=== PATIENT | male | born 1980 | race Caucasian/White ===

== ENCOUNTER → 2022-03-24 14:19 | Outpatient (CLI) | payer OTHER, SELFPAY ==
--- NOTE | ~2022-03-24 | US_ITS ---
US axilla LT 03/24/2022 14:33 Indication: Palpable left axillary mass Procedure: High-resolution Limited ultrasound of the axilla Comparison: No prior studies for comparison. Findings: There are normal-appearing left axillary lymph nodes with normal fatty hilum, largest measu ring 1.7 cm. Impression: 1: Normal left axillary lymph nodes measuring up to 1.7 cm. BI-RADS CATEGORY 2 - BENIGN FINDINGS Reviewed, dictated and finalized at location A. Impression: 1: Normal left axillary lymph nodes measuring up to 1.7 cm. BI-RADS CATEGORY 2 - BENIGN FINDINGS
== END ==
PROVIDERS: PCP Family Medicine; Visit Provider Nurse Practitioner Family
DX: R59.0 Localized enlarged lymph nodes (principal)
CPT/HCPCS: 76882

== ENCOUNTER 2022-04-28 01:05 | Day surgery (SDC) | payer OTHER, SELFPAY ==
[2022-04-13 09:16] VITALS: BMI 31.1
--- NOTE | 2022-04-27 13:45 | SUR.PREOP ---
pt called and notified to not take magnesium citrate d/t a recall. pt verbalized understanding.
[2022-04-28 08:53] VITALS: BP 119/75; PULSE 63; RESP 18; TEMP 36.4; O2SAT 96; BMI 31.1
[2022-04-28] MEDS: LACTATED RINGERS 1,000 ML 150 ML IV CONT (09:05)
--- NOTE | 2022-04-28 09:10 | P.PNAN_ITS ---
Anes - Initial Pre Proc Eval Procedure: Operation Date: 04/28/22 10:00 Proposed Procedures p Screening Colonoscopy - Fransisco Mckenna MD Date/Time: 04/28/22 09:10 Surgeon: Fransisco Mckenna MD Pre Op Diagnosis: family hx colon ca, neoplasm screening Patient Data Age: 41 Gender: M Height: 1.83 m Weight: 104.2 kg Last Vital Signs Temp 97.6 F 04/28/22 08:53 Pulse 63 04/28/22 08:53 Resp 18 04/28/22 08:53 BP 119/75 04/28/22 08:53 Pulse Ox 96 04/28/22 08:53 O2 Del Method Room Air 04/28/22 08:53 Allergies Allergy/AdvReac Type Severity Reaction Status Date / Time No Known Allergies Allergy Unknown Verified 04/28/22 08:51 Home Medications Medication Instructions Recorded Confirmed Type escitalopram oxalate 10 mg tablet 10 mg PO DAILY #30 tabs 01/10/22 04/28/22 Rx (Lexapro) Patient hx anesthesia problems: none Family hx anesthesia problems: none Results Review: All pre-operative results and documents have been reviewed as part of the pre- operative evaluation. [facility] Past Medical History Medical History BMI 30.0-30.9,adult BMI 31.0-31.9,adult Family History Family History Grandparent Diabetes mellitus Father AVM (arteriovenous malformation) Cancer Carcinoma of colon Mother Diabetes mellitus Social History Social History Smoking status: Never smoker Second hand tobacco smoke exposure: Yes Alcohol intake: current Drinks per week: 10 Substance use: never Substance use type: does not use Living arrangements: with family Additional occupation/education comments: billing analyst Gender identity (if verbalized by the patient): Male Spiritual care concerns: No Anes - Eval Final PreProcedure Day of Procedure 04/28/22 09:10 Patient weight: overweight Heart: regular rate and rhythm Lungs: clear to auscultation Airway: Mallampati scale class II Neurological: alert and oriented Last oral intake: >/= 8 hours ASA classification: II Emergent: no Anesthetic plan: proceed Anesthesia type and monitoring: general GIVS and standard monitoring Results Review: All pre-operative results and documents have been reviewed as part of the pre- operative evaluation. Informed Consent: The patient's anesthetic plan and its attendant risks and benefits were discussed with the patient/family/POA. Questions were solicited and answers provided to the satisfaction of the patient/family/POA.
--- NOTE | 2022-04-28 09:24 | P.HP_ITS ---
H&P: HPI History of Present Illness Date/Time: 04/28/22 09:24 Chief Complaint: Family history of colon cancer. Narrative: This is a 41-year-old white male patient presents for colonoscopy. Patient's family history is significant his father and grandmother both have had colon cancer. Patient states that his own weight appetite and bowel movements are normal. Patient denies abdominal pain. He has had no bleeding. He presents today for screening exam. Review of Systems Review of Systems: Review of systems noncontributory. 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 Gender identity (if verbalized by the patient): Male Spiritual care concerns: No Meds Home Medications and Allergies Home Medications Medication Instructions Recorded Confirmed Type escitalopram oxalate 10 mg tablet 10 mg PO DAILY #30 tabs 01/10/22 04/28/22 Rx (Lexapro) Allergies Allergy/AdvReac Type Severity Reaction Status Date / Time No Known Allergies Allergy Unknown Verified 04/28/22 08:51 Vital Signs Vital Signs - 24 hr 04/28/22 08:53 Temperature 97.6 F Pulse Rate 63 Respiratory Rate 18 Blood Pressure 119/75 Pulse Oximetry 96 Oxygen Delivery Room Air Exam Narrative: Physical exam reveals patient to be alert. Vital signs stable. HEENT exam is unremarkable. Patient is anicteric. Lungs are clear to au scultation and percussion. Heart is without murmur or extra sounds. Abdominal exam bowel sounds present soft nontender with no hepatosplenomegaly. Digital external rectal exam is normal. Assessment and Plan Assessment and plan (1) Family hx of colon cancer: Code(s): Z80.0 - Family history of malignant neoplasm of digestive organs Status: Acute Assessment and Plan: Patient gives a family history of colon cancer in both father and grandmother. Plan for surveillance colonoscopy now and consider this at 5 year intervals in the future.
[2022-04-28 10:34] VITALS: BP 98/68; PULSE 56; RESP 14; O2SAT 99
[2022-04-28 10:44] VITALS: BP 116/86; PULSE 61; RESP 19; O2SAT 98
== END 2022-04-28 11:01 | disposition home or self-care (01) ==
PROVIDERS: PCP Family Medicine; Visit Provider Internal Medicine Gastroenterology
PROC: 0DJD8ZZ Inspection of Lower Intestinal Tract, Via Natural or Artificial Opening Endoscopic (ICD-10-PCS; CPT 45378; principal; 2022-04-28 10:00)
DX: Z12.11 Encounter for screening for malignant neoplasm of colon (principal); Z80.0 Family history of malignant neoplasm of digestive organs; K64.8 Other hemorrhoids; D12.5 Benign neoplasm of sigmoid colon
CPT/HCPCS: 45385; 88305; J2704; J7120

== ENCOUNTER 2022-07-21 12:55 | Emergency (ER) | payer OTHER, SELFPAY ==
[2022-07-21 13:07] VITALS: BP 115/90; PULSE 76; RESP 16; TEMP 36.9; O2SAT 99
--- NOTE | 2022-07-21 13:08 | ED.URI ---
HPI - URI/Sore Throat General Chief Complaint: Upper Respiratory Infection Stated Complaint: fever, coughing, congestion, headache Time Seen by Provider: 07/21/22 13:22 Source: patient and RN notes reviewed Mode of arrival: ambulatory Limitations: no limitations History of Present Illness HPI Narrative: 41-year-old female presents to concern for 12 day history of head congestion, pressure, cough, cold sweats, fever. Reports he has been taking some [id number] medications with only temporary relief. He reports pressure behind his eyes, sinus pain. MD elicited complaint: cough and nasal congestion Related Data Allergies Allergy/AdvReac Type Severity Reaction Status Date / Time No Known Allergies Allergy Unknown Verified 04/28/22 08:51 Review of Systems Review of Systems: CONSTITUTIONAL: Report malaise, chills, sweats, fever. EYES: Denies visual changes, redness, or discharge. ENT: Reports rhinorrhea, congestion, sinus pain. Denies otalgia and sore throat. CARDIOVASCULAR: Denies chest pain, palpitations, or edema. RESPIRATORY: Reports cough. Denies dyspnea. GASTROINTESTINAL: Denies abdominal pain, nausea, vomiting, diarrhea SKIN: Denies rash or itching. MUSCULOSKELETAL: Reports myalgia. NEUROLOGIC: Reports headache. 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 There is no relevant family history pertinent to the presenting complaint Exam Narrative: GENERAL: Well-appearing, well-nourished, and in no acute distress. HEAD: Normocephalic EYES: PERRLA, conjunctivae clear ENT: Nares clear, turbinates edematous and erythematous, sinus tenderness. Mucous membranes moist. Right TM pearly sheldon with dull light reflex, left TM erythematous and bulging; no tragal tenderness. Oropharynx not erythematous without lesions. Tonsils not enlarged and without exudate, no drooling, no hoarseness, no trismus, uvula midline. NECK: Supple. No lymphadenopathy CHEST: Clear to auscultation, breath sounds equal. No wheezing, rhonchi, rales, or stridor. No respiratory distress, speaks in full sentences. HEART: Regular rate and rhythm. No murmur heard. SKIN: Warm, dry, no rash. NEURO: Alert and oriented x3. PSYCH: Normal mood and affect Course Course Emergency Course: Patient is aware of diagnosis, understands and agrees to treatment plan. Anticipatory guidance given. Patient agrees to follow-up as directed and is aware of reasons to seek care at the emergency department. Portions of this record may have been created with voice recognition software Level of Care: Express Care Visit Vital Signs Vital signs: Vital Signs Temperature 98.4 F 07/21/22 13:07 Pulse Rate 76 07/21/22 13:07 Respiratory Rate 16 07/21/22 13:07 Blood Pressure 115/90 07/21/22 13:07 Pulse Oximetry 99 07/21/22 13:07 Temperature 98.4 F 07/21/22 13:07 Pulse Rate 76 07/21/22 13:07 Respiratory Rate 16 07/21/22 13:07 Blood Pressure 115/90 07/21/22 13:07 Pulse Oximetry 99 07/21/22 13:07 Reviewed. TAMIA - URI/Marjorie Haines
== END 2022-07-21 13:32 | disposition home or self-care (01) ==
PROVIDERS: Emergency Provider Nurse Practitioner; PCP Family Medicine
DX: H66.90 Otitis media, unspecified, unspecified ear (principal); J32.9 Chronic sinusitis, unspecified
CPT/HCPCS: 99213; G0463

== ENCOUNTER 2023-06-12 09:43 | Emergency (ER) | payer OTHER, SELFPAY ==
[2023-06-12 09:52] VITALS: BP 115/82; PULSE 70; RESP 16; TEMP 36.5; O2SAT 98
[2023-06-12 09:54] VITALS: BP 115/82; PULSE 70; RESP 16; TEMP 36.5; O2SAT 98
--- NOTE | 2023-06-12 09:54 | ED.DIZZY ---
HPI - Dizziness General Chief Complaint: Dizziness Stated Complaint: DIZZINESS Time Seen by Provider: 06/12/23 09:55 Source: patient Mode of arrival: ambulatory Limitations: no limitations History of Present Illness HPI Narrative: Blair is a 42-year-old male patient presenting to clinic today with complaints of dizziness and sinus headache. He reports he went to the ER on Sunday for dizziness. Reports that he feels as though the ground is moving underneath him and that his equilibrium is off. He reports the ER did a CT of his brain which was negative, blood work which all came back normal, and an EKG which was also normal. States that they did not put him on any medications for dizziness and just wanted him to follow-up for with his doctor. He reports that they also would like to have him have a stress test. He denies any chest pain or shortness of breath currently. He denies any tingling or numbness. Related Data Allergies Allergy/AdvReac Type Severity Reaction Status Date / Time No Known Allergies Allergy Unknown Verified 06/12/23 09:53 Review of Systems Review of Systems: Pertinent positives per HPI. Patient denies any fever, chills, rash, visual changes, cough, runny nose, sore throat, shortness of breath, chest pain, palpitations, nausea, vomiting, diarrhea, constipation, abdominal pain, or any urinary issues. [facility] Past Medical History Medical History BMI 30.0-30.9,adult BMI 31.0-31.9,adult Family History Family History Grandparent Diabetes mellitus Father AVM (arteriovenous malformation) Cancer Carcinoma of colon Mother Diabetes mellitus Social History Social History Smoking status: Never smoker Second hand tobacco smoke exposure: Yes Alcohol intake: current Drinks per week: 10 Substance use: never Substance use type: does not use Lack of Transportation: No Lack of Food: Never True Current Housing: I Have Housing Concerned About Future Housing: No Difficulty Paying Gas/Electric Bills: No Difficulty Paying for Meds: No Currently Unemployed: No Education: Bachelor's Degree Difficulty w/ Childcare or Family Care: No Living arrangements: with family Occupation/Education: occupation 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 There is no relevant family history pertinent to the patient complaint. Exam Narrative: General: Well-developed, well nourished, in no apparent distress Head: Normocephalic, atraumatic Eyes: Pupils equally round and reactive to light bilaterally, EOM intact, sclera and conjunctive clear, no discharge, lids normal Ears: TMs intact, congestion with fluid noted behind the TM, with mild bulging, ear canals clear, no drainage, grossly hearing normal. Nose: Nares patent, clear discharge, mild inflammation, no sinus tenderness. Mouth: Oropharynx without lesions or masses, good dentition, MMM. Tongue midline, even rise and fall of uvula Neck: Supple, trachea midline, no enlargement of anterior or posterior cervical nodes, no thyroid masses or goiter palpable. Cardio: Regular rate and rhythm, s1 and s2 normal, no murmur appreciated. Resp: Clear to auscultation bilaterally anteriorly and posteriorly, no rhonchi, rales, wheezing or rubs Musculoskeletal: No deformity, non-tender to palpation, grossly normal range of motion, muscle strength strong and equal, peripheral pulse strong, no edema, no cyanosis, normal gait and station Neuro: Alert and oriented x4 with normal speech, no focal deficits, cranial nerves I through XII intact, m
== END 2023-06-12 10:06 | disposition home or self-care (01) ==
PROVIDERS: Emergency Provider Nurse Practitioner Family; PCP Family Medicine
DX: H69.93 Unspecified Eustachian tube disorder, bilateral (principal); H66.93 Otitis media, unspecified, bilateral; R42 Dizziness and giddiness
CPT/HCPCS: 99213; G0463

== ENCOUNTER 2023-07-16 09:23 | Outpatient (CLI) | payer OTHER, SELFPAY ==
--- NOTE | 2023-07-16 09:28 | EST_ITS ---
Patient Info Name: Blair Stahl Age: 42 years : 1980 Gender: Male Ht: 72 in Wt: 250 lbs BSA: 2.44 m2 HR: 74 bpm BP: 127 / 83 mmHg Heart Rhythm: Sinus Rhythm Exam Date: 07/16/2023 9:45 AM Exam Location: [facility] Stress Patient Status: Outpatient Admit Date: 07/16/2023 Staff Ordering Physician: Ayah Baumann PAC Attending Provider: Ayah Baumann PAC Exercise Technologist: Monika Bustillo, CHAKA Exercise Physician: Robby Boggs DO Exam Type: CA stress test treadmill Study Info Indications R42 - Dizziness and giddiness A treadmill exercise stress test was performed. Summary 1. 1. Negative Mk exercise stress test for ischemic ST changes by ECG criteria. 2. 2. Good functional capacity, achieving 10 METs of workload. 3. 3. Appropriate HR response to exercise. 4. 4. Appropriate HR recovery at 1 minute post exercise. 5. 5. No imaging with stress testing. 6. 6. Patient informed of the above results. Protocol: Mk Stress ECG Details Stage: REST Duration (min): 9 min : 23 sec Speed (mph): 0.0 Grade (%): 0 HR (bpm): 71 SBP (mmHg): 127 DBP (mmHg): 83 METS: --- Stage: REST Duration (min): 9 min : 50 sec Speed (mph): 0.0 Grade (%): 0 HR (bpm): 70 SBP (mmHg): 127 DBP (mmHg): 83 METS: --- Stage: STAGE 1 Duration (min): 1 min : 0 sec Speed (mph): 1.7 Grade (%): 10 HR (bpm): 95 SBP (mmHg): 127 DBP (mmHg): 83 METS: --- Stage: STAGE 1 Duration (min): 2 min : 0 sec Speed (mph): 1.7 Grade (%): 10 HR (bpm): 100 SBP (mmHg): 127 DBP (mmHg): 83 METS: --- Stage: STAGE 1 Duration (min): 3 min : 0 sec Speed (mph): 1.7 Grade (%): 10 HR (bpm): 103 SBP (mmHg): 119 DBP (mmHg): 75 METS: --- Stage: STAGE 2 Duration (min): 1 min : 0 sec Speed (mph): 2.5 Grade (%): 12 HR (bpm): 120 SBP (mmHg): 119 DBP (mmHg): 75 METS: --- Stage: STAGE 2 Duration (min): 2 min : 0 sec Speed (mph): 2.5 Grade (%): 12 HR (bpm): 127 SBP (mmHg): 156 DBP (mmHg): 77 METS: --- Stage: STAGE 2 Duration (min): 3 min : 0 sec Speed (mph): 2.5 Grade (%): 12 HR (bpm): 134 SBP (mmHg): 156 DBP (mmHg): 77 METS: --- Stage: STAGE 3 Duration (min): 1 min : 0 sec Speed (mph): 3.4 Grade (%): 14 HR (bpm): 149 SBP (mmHg): 169 DBP (mmHg): 88 METS: --- Stage: STAGE 3 Duration (min): 2 min : 0 sec Speed (mph): 3.4 Grade (%): 14 HR (bpm): 161 SBP (mmHg): 169 DBP (mmHg): 88 METS: --- Stage: STAGE 3 Duration (min): 2 min : 30 sec Speed (mph): 3.4 Grade (%): 14 HR (bpm): 166 SBP (mmHg): 169 DBP (mmHg): 88 METS: --- Stage: RECOVERY Duration (min): 0 min : 29 sec Speed (mph): 0.0 Grade (%): 0 HR (bpm): 160 SBP (mmHg): 179 DBP (mmHg): 84 METS: --- Stage: RECOVERY Duration (min): 1 min : 30 sec Speed (mph): 0.0 Grade (%): 0 HR (bpm): 126 SBP (mmHg): 179 DBP (mmHg):
== END 2023-07-16 09:24 | disposition home or self-care (01) ==
LOC: ANHCARD 09:24
PROVIDERS: PCP Family Medicine; Visit Provider Physician Assistant Medical
DX: R42 Dizziness and giddiness (principal); Z82.49 Family history of ischemic heart disease and other diseases of the circulatory system
CPT/HCPCS: 93017

== ENCOUNTER 2023-07-30 07:46 | Outpatient (RCR) | payer OTHER, SELFPAY ==
--- NOTE | 2023-07-30 08:56 | OPREHPOC ---
Outpatient Therapy Plan of Care This is a Multidisciplinary Plan of Care that may contain components documented by all disciplines (PT, OT, and ST.) PT Problem 1 PT Problem #1 Knowledge Deficit PT Goal 1 Goal 1* indep with HEP PT Problem 2 PT Problem #2 Impaired Vestibular Syste PT Goal 1 Goal pt perform without c/o vestibular symptoms, loss of balance or unsteady gait: 1* 360' turn to R x1 2* 360' turn to L x1 3* eyes closed tandem stand lead L, 30 seconds 4* eyes closed tandem stand lead R, 30 seconds 5* walk 50' with head motions R/L 3x eadh 6* walk 50' with head motions up/down 3x each 7* Dizziness Handicap Index score of 10/100 8* further assessment of vestibular system as indicated
--- NOTE | 2023-07-30 08:56 | PTOPEVAL1 ---
Assessment and note entered by Roshni Billy, PT Evaluation Information Assessment Status Evaluation Diagnosis dizziness Onset 06-10-23 Subjective Information onset of dizziness, lasting about 1 hour; to ER May, due to face and arm numbness--testing negative; was told had some ear congestion; to ENT tomorrow--Dr Johnson; have tried the Eply at home, no results; History: wearing glasses for reading only- vision OK; seasonal allergies; some issues with neck tightness; no headaches, sinus infection; then got worse, about Jun 10 --- had 4 days of severe dizziness, could not walk, had to use a cane, vomited; in past few weeks: dizziness less, but constant s/s: off balance, eyes trying to catch up with moving head, uncertain when walking, head is off s/s increase: when move head R/L, walking look up/ down, close eyes in shower; Dizziness Handicap Index: 28/100; Vestibular testing: Jovanny Shepard [place] and Horizontal canal testing to R and L were negative; Occulomotor testing: eye tracking, head and eye movements R/L and up/down negative; gaze stabilization with head motions R/L and up/ down with unsteady, feel funny and wobbly balance: 10 reps Balance: eyes closed 10 sec- unsteady; 360' turn to L > R unsteady; small base of support and eyes closed 10 sec- unsteady; tandem stand unsteady with L > R as lead foot; Reported Pain Level Pain Score 0: Self Report Additional Pain Score Comments little stiff neck, slept wrong, generally no pain in neck; Assessment PT Clinical Summary Dakota has the diagnosis of vestibular rehab. He had severe dizziness with nausea and difficulty walking, lasted about 4 days in May, now has decreased but still not feel right. He is able to perform all of his home and work tasks. With testing: he has decreased gaze stabilization and occulomotor, balance issues. Testing for BPPV was negative.
--- NOTE | 2023-09-03 10:17 | PTOPDC ---
Assessment and note entered by Roshni Billy, PT Discharge Information Assessment PT Clinical Summary PHYSICAL THERAPY DISCHARGE Dakota had the PT evaluation on 07-30-23. He had an appointment with ENT, then called and canceled his PT services. The goals were not assessed. Discharge PT per pt request. Plan of Care PT Services Indicated No
== END 2023-09-03 11:37 | disposition home or self-care (01) ==
LOC: ANHPT 07:46
PROVIDERS: PCP Family Medicine; Visit Provider Physician Assistant Medical
DX: R42 Dizziness and giddiness (principal)
CPT/HCPCS: 97110; 97161; 97530